=== PATIENT | male | born 1980 | race Hispanic/Latino ===

== ENCOUNTER 2021-02-05 20:25 | Emergency (ER) | payer SELFPAY ==
--- NOTE | 2021-02-05 21:37 | RAD REPORT ---
EXAM DESCRIPTION: RAD - Chest Single View - 02/05/2021 9:27 pm CLINICAL HISTORY: COUGH COMPARISON: No comparisons FINDINGS: Lines: None. Lungs: No evidence of edema or pneumonia. Pleural: No significant pleural effusions or pneumothorax. Cardiac: The heart size is within normal limits. Bones: No acute fractures. Other: IMPRESSION: No acute cardiopulmonary disease.
[2021-02-05] MEDS ORDERED: NA CHLORIDE 0.9% 1,000 ML ONE (21:41)
[2021-02-05] MEDS ORDERED: NA CHLORIDE 0.9% 500 ML ONE ×2 (21:41→22:38)
[2021-02-05 21:42] LABS: Protime INR 1.06
[2021-02-05 21:43] LABS: Absolute Lymphocytes (CBC) 2.9 K/uL (0.7-4.9); Basophils % 0.7 % (0-1.3); Hematocrit 42.5 % (39.6-49.0); MPV 7.1 fL (7.6-11.3); RBC Red Blood Cell Count 4.86 M/uL (4.33-5.43)
[2021-02-05 21:53] LABS: Barbiturates NEGATIVE (NEGATIVE); Benzodiazepines NEGATIVE (NEGATIVE); Cocaine NEGATIVE (NEGATIVE); METHAMPHETAM NEGATIVE (NEGATIVE); Methadone NEGATIVE (NEGATIVE); Opiates NEGATIVE (NEGATIVE); Phencyclidine NEGATIVE (NEGATIVE); THC Cannibis NEGATIVE (NEGATIVE)
[2021-02-05 22:00] LABS: ALT/SGPT 54 U/L (12-78); AST/SGOT 35 U/L (15-37); Albumin 3.6 g/dL (3.4-5.0); Alkaline Phosphatase 29 U/L (45-117); BUN Blood Urea Nitrogen 11 mg/dL (7-18); Bicarbonate 31 mmol/L (21-32); Bilirubin Direct < 0.1 mg/dL (0-0.2); Bilirubin Total 0.4 mg/dL (0.2-1.0); CKMB Creatine Kinase MB 7.4 ng/mL (1.0-3.6); Creatine Phosphokinase 935 U/L (39-308); Glucose Level 108 mg/dL (74-106); Lipase 211 U/L (73-393); Magnesium 2.2 mg/dL (1.8-2.4); NT PRO-BNP 39 pg/mL (<125); Potassium 3.8 mmol/L (3.5-5.1); Protein, Total 7.4 g/dL (6.4-8.2); Sodium Level 140 mmol/L (136-145); Troponin (Emerg Dept Use Only) < 0.02 ng/mL (0.0-0.045)
--- NOTE | 2021-02-05 22:04 | ER ---
Nurse's Notes [facility] Name: Yony Luke Age: 40 yrs Sex: Male : 1980 Arrival Date: 02/05/2021 Time: 20:28 Bed 30 Private MD: Diagnosis: Edema, unspecified;Rhabdomyolysis Presentation: 02/05 20:37 Chief complaint: Patient states: Pt states he has noticed his urine has been wg dark/concentrated and has had some edema in his ankles/feet. Pt states he takes a lot of supplements for body building and has been drinking and retaining a lot of water. Pt denies SOB, CP, Abd pain or dizziness. Coronavirus screen: Vaccine status: Patient reports receiving the 2nd dose of the covid vaccine. Date January 02, 2021 At this time, the client does not indicate any symptoms associated with coronavirus-19. Ebola Screen: Patient negative for fever greater than or equal to 101.5 degrees Fahrenheit, and additional compatible Ebola Virus Disease symptoms Patient denies exposure to infectious person. Patient denies travel to an Ebola-affected area in the 21 days before illness onset. No symptoms or risks identified at this time. Initial Sepsis Screen: Does the patient meet any 2 criteria? No. Patient's initial sepsis screen is negative. Does the patient have a suspected source of infection? No. Patient's initial sepsis screen is negative. Risk Assessment: Do you want to hurt yourself or someone else? Patient reports no desire to harm self or others. Onset of symptoms was February 02, 2021. 20:37 Method Of Arrival: Ambulatory 20:37 Acuity: GHULAM 3 wg Triage Assessment: 20:40 General: Appears in no apparent distress. well developed, Behavior is calm, wg cooperative, appropriate for age. Pain: Denies pain. Historical: - Allergies: 20:40 No Known Allergies; wg - Home Meds: 20:40 None [Active]; wg - PMHx: 20:40 None; wg - Immunization history:: Adult Immunizations up to date. - Social history:: Smoking status: Patient denies any tobacco usage or history of. Screenin:54 Abuse screen: Denies threats or abuse. Denies injuries from another. Nutritional sj1 screening: No deficits noted. Tuberculosis screening: No symptoms or risk factors identified. Fall Risk None identified. Assessment: 20:54 General: Appears in no apparent distress. Behavior is calm, cooperative, appropriate sj1 for age. Pain: Complains of pain in bilat upper and lower ext. Neuro: No deficits noted. Cardiovascular: No deficits noted. Cardiovascular: bilat edema in lower ext . Respiratory: No deficits noted. GI: No deficits noted. : No deficits noted. EENT: No deficits noted. Derm: No deficits noted. Musculoskeletal: No deficits noted. 23:04 Reassessment: Patient appears in no apparent distress at this time. No changes from sj1 previously documented assessment. Patient and/or family updated on plan of care and expected duration. Pain level reassessed. Vital Signs: 20:37 BP 121 / 70; Pulse 74; Resp 18; Temp 98.4; Pulse Ox 100% on R/A; Weight 74.84 kg; wg Height 5 ft. 5 in. (165.10 cm); Pain 0/10; 22:33 BP 148 / 98 RA Supine (auto/reg); Pulse 73; Resp 18 S; Temp 98.4(O); Pulse Ox 97% on sj1 R/A; Pain 2/10; 20:37 Body Mass Index 27.46 (74.84 kg, 165.10 cm) ED Course: 20:28 Patient arrived in ED. wm 20:40 Triage completed. wg 20:41 Arm band placed on left wrist. wg 20:43 Arron Root MD is Attending Physician. nereida 20:54 Patient has correct armband on for positive identification. Bed in low position. Call sj1 light in reach. Side rails up X 1. 20:54 No provider procedures requiring assistance completed. Inserted saline lock: 18 gauge sj1 in right antecubital area, using aseptic technique. Blood collected. 20:58 Basic Metabolic Panel Sent. sj1 20:58 CBC with Diff Sent. sj1 20:58 LFT's Sent. sj1 21:26 XRAY Chest (1 view) In Process Unspecified. EDMS 22:02 Yosi Fowler MD is Referral Physician. nereida 23:06 Ange Justice, RN is Primary Nurse. sj1 23:29 IV discontinued, intact, bleeding controlled, No redness/swelling at site. sj1 Administered Medications: 22:04 Discontinued: NS 0.9% 1000 ml IV at 125 ml/hr continuous nereida 21:16 Drug: NS 0.9% 500 ml Route: IV; Rate: bolus; Site: left antecubital; sj1 21:45 Follow up: IV Status: Completed infusion; IV Intake: 1000ml sj1 21:16 Drug: NS 0.9% 1000 ml Route: IV; Rate: 125 ml/hr; Site: left antecubital; sj1 23:29 Follow up: IV Status: Completed infusion; IV Intake: 1000ml sj1 22:17 Drug: NS 0.9% 500 ml Route: IV; Rate: bolus; Site: left antecubital; sj1 23:29 Follow up: IV Status: Completed infusion; IV Intake: 500ml sj1 Intake: 21:45 IV: 1000ml; Total: 1000ml. sj1 23:29 IV: 500ml; Total: 1500ml. sj1 23:29 IV: 1000ml; Total: 2500ml. sj1 Outcome: 22:03 Discharge ordered by . nereida 23:05 Discharged to home ambulatory. sj1 23:05 Discharged to home ambulatory. 23:05 Condition: stable 23:05 Discharge instructions given to patient, Instructed on discharge instructions, follow up and referral plans. Demonstrated understanding of instructions, follow-up care. 23:30 Patient left the ED. sj1 Signatures: Dispatcher [employer] EDArron Narayanan MD MD cha Marsh, Wendy wm Gamba, Liam, RN wg Johnson, Sade, RN RN sj1
--- NOTE | 2021-02-05 22:04 | EDPHYS ---
Physician Documentation [facility] Name: Yony Luke Age: 40 yrs Sex: Male : 1980 Arrival Date: 02/05/2021 Time: 20:28 Bed 30 Private MD: ED Physician Arron Root HPI: 02/05 21:16 This 40 yrs old Male presents to ER via Ambulatory with complaints of Edema. nereida 21:16 le edema, dark urine. Onset: The symptoms/episode began/occurred 2 day(s) ago. Severity nereida of symptoms: At their worst the symptoms were mild in the emergency department the symptoms have improved mildly. The patient has not experienced similar symptoms in the past. Historical: - Allergies: 20:40 No Known Allergies; wg - Home Meds: 20:40 None [Active]; wg - PMHx: 20:40 None; wg - Immunization history:: Adult Immunizations up to date. - Social history:: Smoking status: Patient denies any tobacco usage or history of. ROS: 21:17 Constitutional: Negative for fever, chills, and weight loss, Eyes: Negative for injury, nereida pain, redness, and discharge, ENT: Negative for injury, pain, and discharge, Neck: Negative for injury, pain, and swelling, Cardiovascular: Negative for chest pain, palpitations, and edema, Respiratory: Negative for shortness of breath, cough, wheezing, and pleuritic chest pain, Abdomen/GI: Negative for abdominal pain, nausea, vomiting, diarrhea, and constipation, Back: Negative for injury and pain, : Negative for injury, bleeding, discharge, and swelling, MS/Extremity: Negative for injury and deformity, Skin: Negative for injury, rash, and discoloration, Neuro: Negative for headache, weakness, numbness, tingling, and seizure, Psych: Negative for depression, anxiety, suicide ideation, homicidal ideation, and hallucinations, Endocrine: Negative for neck swelling, polydipsia, polyuria, polyphagia, and marked weight changes, Hematologic/Lymphatic: Negative for swollen nodes, abnormal bleeding, and unusual bruising. Exam: 21:17 Constitutional: This is a well developed, well nourished patient who is awake, alert, nereida and in no acute distress. Head/Face: Normocephalic, atraumatic. Eyes: Pupils equal round and reactive to light, extra-ocular motions intact. Lids and lashes normal. Conjunctiva and sclera are non-icteric and not injected. Cornea within normal limits. Periorbital areas with no swelling, redness, or edema. ENT: Nares patent. No nasal discharge, no septal abnormalities noted. Tympanic membranes are normal and external auditory canals are clear. Oropharynx with no redness, swelling, or masses, exudates, or evidence of obstruction, uvula midline. Mucous membranes moist. Neck: Trachea midline, no thyromegaly or masses palpated, and no cervical lymphadenopathy. Supple, full range of motion without nuchal rigidity, or vertebral point tenderness. No Meningismus. Chest/axilla: Normal chest wall appearance and motion. Nontender with no deformity. No lesions are appreciated. Cardiovascular: Regular rate and rhythm with a normal S1 and S2. No gallops, murmurs, or rubs. Normal PMI, no JVD. No pulse deficits. Respiratory: Lungs have equal breath sounds bilaterally, clear to auscultation and percussion. No rales, rhonchi or wheezes noted. No increased work of breathing, no retractions or nasal flaring. Abdomen/GI: Soft, non-tender, with normal bowel sounds. No distension or tympany. No guarding or rebound. No evidence of tenderness throughout. Back: No spinal tenderness. No costovertebral tenderness. Full range of motion. Skin: Warm, dry with normal turgor. Normal color with no rashes, no lesions, and no evidence of cellulitis. MS/ Extremity: Pulses equal, no cyanosis. Neurovascular intact. Full, normal range of motion. Neuro: Awake and alert, GCS 15, oriented to person, place, time, and situation. Cranial nerves II-XII grossly intact. Motor strength 5/5 in all extremities. Sensory grossly intact. Cerebellar exam normal. Normal gait. Psych: Awake, alert, with orientation to person, place and time. Behavior, mood, and affect are within normal limits. Vital Signs: 20:37 BP 121 / 70; Pulse 74; Resp 18; Temp 98.4; Pulse Ox 100% on R/A; Weight 74.84 kg; wg Height 5 ft. 5 in. (165.10 cm); Pain 0/10; 22:33 BP 148 / 98 RA Supine (auto/reg); Pulse 73; Resp 18 S; Temp 98.4(O); Pulse Ox 97% on sj1 R/A; Pain 2/10; 20:37 Body Mass Index 27.46 (74.84 kg, 165.10 cm) wg MDM: 20:43 Patient medically screened. [facility] 21:18 Data reviewed: vital signs, nurses notes, lab test result(s), EKG, radiologic studies, nereida plain films. Data interpreted: monitor car operator: rate is 74 beats/min, rhythm is regular, Pulse oximetry: on room air is 100 %. Test interpretation: by ED physician or midlevel provider: ECG, plain radiologic studies. Counseling: I had a detailed discussion with the patient and/or guardian regarding: the historical points, exam findings, and any diagnostic results supporting the discharge/admit diagnosis, lab results, radiology results. 02/05 20:45 Order name: Basic Metabolic Panel [facility] 02/05 20:45 Order name: CBC with Diff [facility] 02/05 20:45 Order name: LFT's [facility] 02/05 20:45 Order name: Magnesium; Complete Time: 22:02 [facility] 02/05 20:45 Order name: NT PRO-BNP; Complete Time: 22:02 [facility] 02/05 20:45 Order name: PT-INR; Complete Time: 21:56 [facility] 02/05 20:45 Order name: Troponin (emerg Dept Use Only); Complete Time: 22:02 [facility] 02/05 20:45 Order name: Lipase; Complete Time: 22:02 [facility] 02/05 20:45 Order name: CK; Complete Time: 22:02 [facility] 02/05 20:45 Order name: Ckmb; Complete Time: 22:02 [facility] 02/05 20:45 Order name: UDS; Complete Time: 21:56 [facility] 02/05 20:46 Order name: Basic Metabolic Panel; Complete Time: 22:02 [facility] 02/05 20:46 Order name: CBC with Automated Diff; Complete Time: 21:56 [facility] 02/05 20:46 Order name: Liver (Hepatic) Function; Complete Time: 22:02 [facility] 02/05 20:42 Order name: Urine Dipstick-Ancillary (obtain specimen); Complete Time: 21:27 02/05 20:45 Order name: XRAY Chest (1 view); Complete Time: 21:56 [facility] 02/05 20:45 Order name: EKG; Complete Time: 20:46 [facility] 02/05 20:45 Order name: Cardiac monitoring; Complete Time: 20:59 [facility] 02/05 20:45 Order name: EKG - Nurse/Tech; Complete Time: 21:45 [facility] 02/05 20:45 Order name: IV Saline Lock; Complete Time: 20:59 [facility] 02/05 20:45 Order name: Labs collected and sent; Complete Time: 20:59 [facility] 02/05 20:45 Order name: O2 Per Protocol; Complete Time: 20:59 [facility] 02/05 20:45 Order name: O2 Sat Monitoring; Complete Time: 20:59 [facility] 02/05 22:29 Order name: Urine Dipstick-Ancillary EDMS Administered Medications: 22:04 Discontinued: NS 0.9% 1000 ml IV at 125 ml/hr continuous nereida 21:16 Drug: NS 0.9% 500 ml Route: IV; Rate: bolus; Site: left antecubital; 1 21:45 Follow up: IV Status: Completed infusion; IV Intake: 1000ml [facility] 21:16 Drug: NS 0.9% 1000 ml Route: IV; Rate: 125 ml/hr; Site: left antecubital; sj1 23:29 Follow up: IV Status: Completed infusion; IV Intake: 1000ml [facility] 22:17 Drug: NS 0.9% 500 ml Route: IV; Rate: bolus; Site: left antecubital; sj1 23:29 Follow up: IV Status: Completed infusion; IV Intake: 500ml [facility] Disposition Summary: 02/05/21 22:03 Discharge Ordered Location: Home nereida Problem: new nereida Symptoms: have improved nereida Condition: Stable nereida Diagnosis - Edema, unspecified nereida - Rhabdomyolysis nereida Followup: nereida - With: Private Physician - When: 2 - 3 days - Reason: Recheck today's complaints, Continuance of care, Re-evaluation by your physician Followup: nereida - With: Yosi Fowler MD - When: 2 - 3 days - Reason: Recheck today's complaints, Re-evaluation by your physician Discharge Instructions: - Discharge Summary Sheet nereida - Dehydration, Adult nereida - Edema nereida - Edema, [id number] nereida - Dehydration, Adult, [id number] nereida - Rhabdomyolysis nereida - Peripheral Edema nereida Forms: - Medication Reconciliation Form nereida - Thank You Letter nereida - Antibiotic Education nereida - Prescription Opioid Use nereida Signatures: Dispatcher [employer] Arron Johnson MD MD cha Gamba, Liam, RN wg Johnson, Sade, RN RN sj1
[2021-02-05 22:29] LABS: Urine Blood Negative (Negative); Urine Glucose Negative (Negative); Urine Protein Trace (Negative); Urine pH 8.5 (5.0-7.0)
[2021-02-05 23:40] VITALS: TEMP 98.4
[2021-02-05 23:42] VITALS: BP 148/98; O2SAT 97
--- NOTE | 2021-02-06 18:09 | EKG ---
Test Date: 2021-02-05 Test Time: 21:43:31 [employer] [place]: MEASUREMENT RESULTS: Intervals: Rate: 64 CA: 150 QRSD: 96 QT: 386 QTc: 398 Cammal: P: 65 CA: 150 QRS: 81 T: 38 INTERPRETIVE STATEMENTS: Normal sinus rhythm Cannot rule out Anterior infarct, age undetermined Abnormal ECG No previous ECG available for comparison Electronically Signed On 02-06-21 18:05:48 CDT by Santhosh Lanza
== END 2021-02-05 23:30 | disposition home or self-care (01) ==
LOC: ER 20:25
DX: M62.82 Rhabdomyolysis (principal)
CPT/HCPCS: 36415; 71045; 80048; 80076; 80307; 81003; 82550; 82553; 83690; 83735; 83880; 84484; 85025; 85610; 93005; 96360; 96361; 99284; J7030; J7040